=== PATIENT | female | born 1945 | race Caucasian/White ===

== ENCOUNTER → 2017-01-10 | Outpatient (CLI) | payer MEDICARE | END | disposition home or self-care (01) | LOC: GMAB 11:24 | PROVIDERS: ATTEND Family Medicine | DX: D50.8 Other iron deficiency anemias (principal); E53.8 Deficiency of other specified B group vitamins; E78.2 Mixed hyperlipidemia; Z79.899 Other long term (current) drug therapy ==

== ENCOUNTER → 2017-01-12 | Outpatient (CLI) | payer MEDICARE ==
--- NOTE | 2017-01-12 16:27 | MAM ---
EXAM DESCRIPTION: 3D Screening BILATERAL : Digital Mammography. CLINICAL HISTORY: 71 years Female SCREENING . No complaints. No family history of breast cancer. Postmenopausal. Taking HRT 5 or more years ago. COMPARISON: 2-D digital screening bilateral study 01/12/2016 and 12/05/2014. Report from prior examination also reviewed. TECHNIQUE: Bilateral CC and MLO projection full-field images, 3-D tomosynthesis digital mammographic technique. Also bilateral synthesized CC/ MLO full-field images. CAD not utilized. FINDINGS: The breast parenchymal density pattern is: Scattered areas of fibroglandular density. No skin thickening or nipple retraction bilateral solitary microcalcifications. Bilateral intramammary lymph nodes and axillary lymph nodes. Stable focal asymmetry in the anterior medial breast. No focal, stellate mass or density, no new focal asymmetry , and no suspicious microcalcifications bilaterally. Stable mammograms compared to prior study, taking into account differences in mammographic technique IMPRESSION: BI-RADS CATEGORY: 2 - BENIGN FINDINGS. FOLLOW UP: Routine digital bilateral screening, one year interval from December 2016. Written communication explaining the IMPRESSION and follow-up, will be mailed to the patient and referring health care provider. According to the [employer], yearly mammograms are recommended starting at age 40 and continuing as long as a woman is in good health. Any breast change noted on a breast self-exam should be reported promptly to the patient's healthcare provider. Breast MRI is recommended for women with an approximately 20-25% or greater lifetime risk of breast cancer, including women with a strong family history of breast or ovarian cancer and women who have been treated for Hodgkin's disease. A negative mammographic report should not delay tissue diagnosis in patients with significant clinical history or physical findings. Extremely dense breast tissue limits the sensitivity of digital mammography. Electronically signed by: Merritt Estes MD 01/12/2017 4:26 PM HOME CARE RN
== END | disposition home or self-care (01) ==
LOC: MAMMO 09:30
PROVIDERS: ATTEND Family Medicine
DX: Z12.31 Encounter for screening mammogram for malignant neoplasm of breast (principal)
CPT/HCPCS: 77063; G0202

== ENCOUNTER → 2018-01-20 | Outpatient (CLI) | payer MEDICARE ==
--- NOTE | 2018-01-23 14:43 | MAM ---
EXAM DESCRIPTION: 3D Screening BILATERAL : Digital Mammography. CLINICAL HISTORY: 72 years Female SCREEN . No complaints. No personal or family history of breast cancer. Childbirth. Postmenopausal 14 years. No HRT. Lifetime risk of developing breast cancer (Tyrer-Cuzick model)(%): 4.9. COMPARISON: Bilateral screening digital breast tomosynthesis 01/12/2017. TECHNIQUE: Bilateral CC and MLO projection full-field images, digital tomosynthesis mammographic technique. Bilateral digital 2-D full-field MLO images. CAD not available for tomosynthesis or 2-D images. FINDINGS: The breast parenchymal density pattern is: Scattered areas of fibroglandular density. No skin thickening or nipple retraction. Bilateral axillary lymph nodes. Bilateral solitary microcalcifications. No new focal, stellate mass or density, focal asymmetry , and no suspicious microcalcifications bilaterally. Stable mammograms compared to prior study. IMPRESSION: Benign exam. BIRAD CATEGORY: 2 BENIGN FINDINGS. RECOMMENDATIONS: FOLLOW UP: Routine digital bilateral mammographic screening, one year interval from December 2017. Written communication explaining the IMPRESSION and follow-up, will be mailed to the patient and referring health care provider. According to the [employer], yearly mammograms are recommended starting at age 40 and continuing as long as a woman is in good health. Any breast change noted on a breast self-exam should be reported promptly to the patient's healthcare provider. Breast MRI is recommended for women with an approximately 20-25% or greater lifetime risk of breast cancer, including women with a strong family history of breast or ovarian cancer and women who have been treated for Hodgkin's disease. A negative mammographic report should not delay tissue diagnosis in patients with significant clinical history or physical findings. Extremely dense breast tissue limits the sensitivity of digital mammography. Electronically signed by: Merritt Estes MD 01/23/2018 2:41 PM RN REHAB
== END ==
LOC: MAMMO 08:00
PROVIDERS: ATTEND Family Medicine
DX: Z12.31 Encounter for screening mammogram for malignant neoplasm of breast (principal)

== ENCOUNTER → 2018-02-06 | Outpatient (CLI) | payer MEDICARE | LOC: GMAE 11:18 | PROVIDERS: ATTEND Family Medicine | DX: Z79.899 Other long term (current) drug therapy (principal) ==

== ENCOUNTER 2018-04-26 05:29 | Day surgery (SDC) | payer MEDICARE ==
[2018-04-26] MEDS ORDERED: PROPOFOL 200 MG/20 ML VIAL IV ONE (10:00)
[2018-04-26] MEDS ORDERED: LIDOCAINE 1% 10 ML VIAL INJ ONE (10:00)
[2018-04-26] MEDS ORDERED: LACTATED RINGERS 1,000 ML ONE (10:17)
--- NOTE | 2018-04-26 13:19 | OP ---
DATE OF PROCEDURE: 04/26/18 PREPROCEDURE DIAGNOSIS: 1. Colorectal cancer screening. POSTPROCEDURE DIAGNOSIS: 1. Ascending colon polyp. 2. Diverticulosis. PROCEDURE: 1. Colonoscopy. SURGEON: Ortega Magdaleno MD COMPLICATIONS: No immediate complications. SEDATION: The patient was sedated via IV propofol by the Anesthesia Department. CONSENT: Prior to the procedure, risks, benefits and alternatives to the therapy were discussed with the patient. The risks included bleeding, infection, perforation and . The patient agreed to the procedure and signed a consent. PREPROCEDURE ANESTHESIA ASSESSMENT: Mallampati class type 2, ASA grade assessment type 2. Throughout the procedure, the patient's vital signs were closely monitored. PROCEDURE: The patient was placed in the left lateral decubitus position and a rectal examination was performed. The rectal examination was within normal limits. The Olympus colonoscope was passed in the anus, rectum, traversing the colon to the level of the cecum as identified by the appendiceal orifice and the ileocecal valve. Preparation quality was good. The withdrawal time was greater than 6 minutes. The patient tolerated the procedure well. FINDINGS: 1. A sessile 8 mm polyp was found in the ascending colon. This was removed with a cold snare and complete retrieved. 2. Diverticulosis was found in the sigmoid and ascending colon. 3. The remainder of the examination was entirely normal. RECOMMENDATION: 1. Return the patient home. 2. Resume previous diet favoring high-fiber food diet. 3. Start Citrucel 2 tablespoons a day. 3. Repeat colonoscopy in 5 years if evidence of adenomatous tissue. 4. Followup pathology results. 5. Return to referring physicians office as previously scheduled. 6. Return to my office p.r.n. 7. Findings were discussed with the patient and family members. #[id number] MTDD
[2018-04-26 13:20] VITALS: BP 120/76; TEMP 97.1; O2SAT 97
== END 2018-04-26 13:10 | disposition home or self-care (01) ==
LOC: AMB 05:29
PROVIDERS: ATTEND Internal Medicine Gastroenterology
DX: Z12.11 Encounter for screening for malignant neoplasm of colon (principal); D12.2 Benign neoplasm of ascending colon; K57.30 Diverticulosis of large intestine without perforation or abscess without bleeding; Z87.891 Personal history of nicotine dependence; Z79.899 Other long term (current) drug therapy
CPT/HCPCS: 00812; 45385; J3490; J7120

== ENCOUNTER → 2019-02-01 | Outpatient (CLI) | payer MEDICARE ==
--- NOTE | 2019-02-06 11:46 | MAM ---
EXAM DESCRIPTION: 3D Screening BILATERAL : Digital Mammography. CLINICAL HISTORY: 73 years Female ANNUAL SCREENING . No complaints. No personal or family history of breast cancer. Menarche age 16. Childbirth age 27. Menopause age 66. No HRT. Lifetime risk of developing breast cancer (Tyrer-Cuzick model)(%): 5.9. COMPARISON: Bilateral screening digital breast tomosynthesis 20 January 2018 and 12 January 2017. TECHNIQUE: Bilateral CC and MLO projection full-field images, digital tomosynthesis mammographic technique. Bilateral digital 2-D full-field MLO images. CAD not available for tomosynthesis or 2-D images. FINDINGS: The breast parenchymal density pattern is: Scattered areas of fibroglandular density. No skin thickening or nipple retraction. Bilateral axillary lymph nodes and solitary microcalcifications. No new focal, stellate mass or density, focal asymmetry , and no suspicious microcalcifications bilaterally. Stable mammograms compared to prior study. IMPRESSION: Benign exam. BIRAD CATEGORY: 2 BENIGN FINDINGS. RECOMMENDATIONS: FOLLOW UP: Routine digital bilateral mammographic screening, one year interval from January 2019. Written communication explaining the IMPRESSION and follow-up, will be mailed to the patient and referring health care provider. According to the [employer], yearly mammograms are recommended starting at age 40 and continuing as long as a woman is in good health. Any breast change noted on a breast self-exam should be reported promptly to the patient's healthcare provider. Breast MRI is recommended for women with an approximately 20-25% or greater lifetime risk of breast cancer, including women with a strong family history of breast or ovarian cancer and women who have been treated for Hodgkin's disease. A negative mammographic report should not delay tissue diagnosis in patients with significant clinical history or physical findings. Extremely dense breast tissue limits the sensitivity of digital mammography. Electronically signed by: Merritt Estes MD 02/06/2019 11:44 AM WELDER APPRENTICE
== END ==
LOC: MAMMO 08:00
PROVIDERS: ATTEND Family Medicine
DX: Z12.31 Encounter for screening mammogram for malignant neoplasm of breast (principal)

== ENCOUNTER → 2019-03-14 | Outpatient (CLI) | payer MEDICARE, OTHER | LOC: GMAE 10:27 | PROVIDERS: ATTEND Family Medicine | DX: Z79.899 Other long term (current) drug therapy (principal) ==

== ENCOUNTER → 2020-03-06 | Outpatient (CLI) | payer MEDICARE, OTHER ==
--- NOTE | 2020-03-07 08:55 | MAM ---
EXAM DESCRIPTION: 3D Screening BILATERAL : Digital Mammography. CLINICAL HISTORY: 74 years Female SCREENING . No complaints. No personal or family history of breast cancer. Menarche age 16. Childbirth age 27. Menopause age 61. HRT 5 or more years ago. Prior benign right breast biopsy. Lifetime risk of developing breast cancer (Tyrer-Cuzick model)(%): 5.2. COMPARISON: Bilateral screening digital breast tomosynthesis January 2019 and December 2017 TECHNIQUE: Bilateral CC and MLO projection full-field images, digital tomosynthesis mammographic technique. Bilateral digital 2-D full-field MLO images. CAD available for 2-D images. FINDINGS: The breast parenchymal density pattern is: Scattered areas of fibroglandular density. Axillary nodes. Solitary microcalcifications. No skin thickening or nipple retraction No new focal, stellate mass or density, focal asymmetry , and no suspicious microcalcifications bilaterally. Stable mammograms compared to prior study. IMPRESSION: Benign exam. BIRAD CATEGORY: 2 BENIGN FINDINGS. RECOMMENDATIONS: FOLLOW UP: Routine digital bilateral mammographic screening, one year interval from February 2020. Written communication explaining the IMPRESSION and follow-up, will be mailed to the patient and referring health care provider. According to the [employer], yearly mammograms are recommended starting at age 40 and continuing as long as a woman is in good health. Any breast change noted on a breast self-exam should be reported promptly to the patient's healthcare provider. Breast MRI is recommended for women with an approximately 20-25% or greater lifetime risk of breast cancer, including women with a strong family history of breast or ovarian cancer and women who have been treated for Hodgkin's disease. A negative mammographic report should not delay tissue diagnosis in patients with significant clinical history or physical findings. Extremely dense breast tissue limits the sensitivity of digital mammography. Electronically signed by: Merritt Estes MD 03/07/2020 8:53 AM IT ACCOUNT MANAGER
== END ==
LOC: MAMMO 07:53
PROVIDERS: ATTEND Family Medicine
DX: Z12.31 Encounter for screening mammogram for malignant neoplasm of breast (principal)

== ENCOUNTER → 2020-04-22 | Outpatient (CLI) | payer MEDICARE, OTHER | LOC: GMAE 11:32 | PROVIDERS: ATTEND Family Medicine | DX: Z79.899 Other long term (current) drug therapy (principal); E78.2 Mixed hyperlipidemia ==